=== PATIENT | female | born 1965 | race Caucasian/White ===

== ENCOUNTER → 2017-05-20 | Outpatient (CLI) | payer OTHER ==
[~2017-05-20] MED LIST: ALBUAER2 INH; LEVO100T84 PO
--- NOTE | 2017-05-20 14:09 | DIAGNOSTIC IMAGING REPORT ---
R SHOULDER MIN 2 VIEWS ROUTINE CLINICAL HISTORY: M25.511,S49.91XA RIGHT SHOULDER PAIN STATUS POST TRAUMA COMPARISON: None. DISCUSSION: There is acute fracture of the acromion. No additional fractures are visualized. There is no dislocation. IMPRESSION: Acute fracture of the acromion. Electronically signed by: Uriel Granger M.D. 05/20/2017 2:08 PM Dictated Date/Time: 05/20/2017 2:07 PM
--- NOTE | 2017-05-20 14:11 | DIAGNOSTIC IMAGING REPORT ---
RIGHT CLAVICLE 3 VIEWS CLINICAL HISTORY: Right arm injury. FINDINGS: 3 views of the right clavicle are correlated with radiographs of the right shoulder performed concurrently on 05/20/2017. The skeletal structures are well mineralized. There is a minimally distracted fracture of the acromion process of the scapula. The right clavicle appears intact. The acromioclavicular and sternoclavicular joints are preserved. The glenohumeral articulation is maintained. Mild soft tissue swelling is suggested overlying the acromion. The visualized right upper lobe lung parenchyma appears clear. IMPRESSION: 1. There is an acute and minimally distracted fracture of the right acromion process of the scapula. 2. No right clavicular fracture is seen. Electronically signed by: Zack Aquino M.D. 05/20/2017 2:09 PM Dictated Date/Time: 05/20/2017 2:08 PM
== END | disposition home or self-care (01) ==
LOC: C.RAD 13:24
PROVIDERS: ATTEND Physician Assistant Surgical
DX: M89.8X1 Other specified disorders of bone, shoulder (principal); M25.511 Pain in right shoulder; S49.91XA Unspecified injury of right shoulder and upper arm, initial encounter; X58.XXXA Exposure to other specified factors, initial encounter

== ENCOUNTER → 2017-12-21 | Outpatient (CLI) | payer OTHER ==
--- NOTE | 2017-12-21 14:25 | MAMMOGRAPHY REPORT ---
BILATERAL DIGITAL SCREENING MAMMOGRAM TOMOSYNTHESIS WITH CAD: 12/21/2017 CLINICAL HISTORY: Routine screening. Patient has no complaints. TECHNIQUE: Breast tomosynthesis in addition to standard 2D mammography was performed. Current study was also evaluated with a Computer Aided Detection (CAD) system. COMPARISON: Comparison is made to exams dated: 05/12/2007 and 05/12/2007. BREAST COMPOSITION: There are scattered areas of fibroglandular density in both breasts. FINDINGS: There are possible grouped linear calcifications in the 2:00 to 3:00 right breast, for whi ch additional spot magnification views are recommended. A focal asymmetry in the 12:00 posterior left breast effaces on the tomosynthesis images most likely representing normal overlapping fibroglandular tissue. No other suspicious mass, architectural distor tion or cluster of microcalcifications is seen. IMPRESSION: ACR BI-RADS CATEGORY 0: INCOMPLETE EVALUATION: NEED ADDITIONAL IMAGING EVALUATION The possible grouped linear calcifications in the 2:00 to 3:00 right breast need additional evaluatio n. The patient will be called to schedule an appointment. Approximately 10% of breast cancers are not detected with mammography. A negative mammographic report should not delay biopsy if a clinically suggestive mass is present. Stephanie Mac M.D. ay/:12/21/2017 09:07:55 Fluoroscope Operator: Poppy CALDWELL)(M), [facility] letter sent: Addl Imaging 0 BI-RADS Code: ACR BI-RADS Category 0: Incomplete Evaluation: Need Additional Imaging Evaluation
== END | disposition home or self-care (01) ==
LOC: C.MAMM 08:41
PROVIDERS: ATTEND Family Medicine
DX: R92.2 Inconclusive mammogram (principal)

== ENCOUNTER → 2017-12-29 | Outpatient (CLI) | payer OTHER ==
--- NOTE | 2017-12-29 15:47 | MAMMOGRAPHY REPORT ---
UNILATERAL RIGHT DIGITAL DIAGNOSTIC MAMMOGRAM: 12/29/2017 CLINICAL HISTORY: Callback from screening mammogram for right breast calcifications. TECHNIQUE: Spot magnification right cc and ML views were obtained. COMPARISON: Comparison is made to exams dated: 12/21/2017 mammogram - [facility] an d 05/12/2007. BREAST COMPOSITION: There are scattered areas of fibroglandular density in the right breast. FINDINGS: Spot magnification views of the right breast demonstrate grouped faint amorphous calcificat ions within the right upper inner quadrant which measure approximately 10 mm in extent on the ML view . On the ML view, the calcifications are in a linear distribution. The calcifications were not david rly present on the prior available 2006 exam. The calcifications are indeterminant given that they a re new and given the linear possibly ductal distribution, stereotactic biopsy is recommended for furt her evaluation. IMPRESSION: ACR BI-RADS CATEGORY 4: SUSPICIOUS Grouped calcifications in a linear distribution in the right upper inner quadrant are indeterminate a nd stereotactic biopsy is recommended for further evaluation. A phone call was made to the physician's office to confirm faxed results were received. The patient has been verbally notified of the results. She [facility] Approximately 10% of breast cancers are not detected with mammography. A negative mammographic report should not delay biopsy if a clinically suggestive mass is present. Donna Lopez M.D. ah/:12/29/2017 08:48:30 Field Sales Executive: Antoinette CALDWELL)(Cesar), [facility] letter sent: Abnormal 4/5 BI-RADS Code: ACR BI-RADS Category 4: Suspicious
== END | disposition home or self-care (01) ==
LOC: C.MAMM 08:27
PROVIDERS: ATTEND Family Medicine
DX: R92.1 Mammographic calcification found on diagnostic imaging of breast (principal)

== ENCOUNTER → 2018-01-05 | Outpatient (CLI) | payer OTHER ==
--- NOTE | 2018-01-05 08:43 | Discharge Instructions ---
Discharge Instructions Procedure Procedure Date: January 05, 2018. Reason for visit: Right Calcifications. Discharge Discharge Date: January 05, 2018. Discharge Diagnosis: status post breast biopsy Instructions Activity Recommendations: Additional Limitations (see below) Return to School/Work: no limitations Recommended Home Diet: No Limitations Provider Instructions: ACTIVITY RECOMMENDATIONS: * No lifting, pushing, pulling or exercising the affected side for three days. RETURN TO SCHOOL/WORK: * You may return to work/school after the procedure, but do not perform any strenuous activities for 24 to 48 hours. MEDICATIONS: * Tylenol (two 325 mg) every four to six hours if needed for mild pain (if not allergic to Tylenol). DIET: * Resume previous diet. SPECIAL CARE INSTRUCTIONS: * Keep biopsy site dry for 24 hours. May shower after 24 hours, but do not soak (bathe) incision. * May remove Tegaderm (plastic patch) tomorrow AFTER showering. * Leave the steri-strips on for one week. Allow the steri-strips to fall off by themselves. If not off after one week, you may remove them. You may place a Bandaid crosswise over the strips, if desired. * Apply ice 10 minutes on and 10 minutes off as needed. * Wear a bra at bedtime to sleep more comfortably for 2-3 days. * Your referring physician should have the results after approximately 5 to 7 business days. * Call for unusual bleeding, fever, drainage, etc or if you have any questions call during normal business hours or after hours call Dr Lopez, [phone]. FOLLOW UP VISIT: Follow-up with Referring Physician as scheduled. Allergies Coded Allergies: No Known Allergies (Verified Allergy, Unknown, 03/09/07) Todd Sethi Recommendations: Call your doctor if: * Temperature above 101 degrees * Pain not relieved by pain medicine ordered * There is increased drainage or redness from any incision * You have any unanswered questions or concerns. Your Doctors Instructions noted above were prepared by provider Donna Lopez. Patient Signature Section: Patient Instructions Signature Page Poppy Byrne Patient (or Guardian) Signature/Date: I have read and understand the instructions given to me by my caregivers. Caregiver/RN/Doctor Signature/Date: The above-named patient and/or guardian has received patient instructions on this date. + Original Patient Signature Page (only) stays with chart. Please make copy for patient.
--- NOTE | 2018-01-05 15:04 | MAMMOGRAPHY REPORT ---
STEREOTACTIC GUIDED BIOPSY RIGHT BREAST: 01/05/2018 CLINICAL HISTORY: Indeterminate calcifications in the right upper inner quadrant. PATIENT CONSENT: The procedure, risks, benefits, and alternatives of stereotactic biopsy with clip pl acement were discussed with the patient, and verbal and written consent was obtained. The increased risk of bleeding or bruising was discussed with the patient given the close proximity of the calcific ations to vessels. A timeout was performed immediately prior to the procedure. PROCEDURE DESCRIPTION: With stereotactic guidance, aseptic technique, and lidocaine as a local anesth etic (1% lidocaine to anesthetize the skin and 1% lidocaine with epinephrine to anesthetize the deepe r tissues), the calcifications of concern in the right upper inner quadrant were sampled multiple shereen es with a 9-gauge vacuum-assisted biopsy needle ([employer]). The path of approach was craniocaudal . The specimen radiograph demonstrates calcifications to be present in the samples. A metallic steff er clip was placed at the biopsy site. This was confirmed on postprocedure mammograms. Direct press ure was applied at the biopsy site and hemostasis was readily achieved. The patient had some bleedin g during the procedure; hemostasis was eventually achieved after approximately 10-15 minutes of manua l compression. She was given wound care instructions. COMPARISON: Comparison is made to exams dated: 12/29/2017 mammogram, 12/21/2017 mammogram - [facility], 05/12/2007, and 05/12/2007. IMPRESSION: STEREOTACTIC GUIDED BIOPSY Stereotactic guided biopsy of indeterminate calcifications in the right upper inner quadrant, with cl ip placement. The patient will receive pathology results from her referring provider. Donna Lopez M.D. ah/:01/05/2018 08:58:04 Attending Technologist: Juan Antonio Matthew RT(R)(M), [facility] Architectural Sales Consultant: Poppy Good RT(R)(M), [facility]
--- NOTE | 2018-01-05 15:08 | MAMMOGRAPHY REPORT ---
UNILATERAL RIGHT DIGITAL DIAGNOSTIC MAMMOGRAM: 01/05/2018 CLINICAL HISTORY: Status post right breast stereotactic biopsy. TECHNIQUE: Postprocedural right CC and ML views were obtained. COMPARISON: Comparison is made to exams dated: 12/29/2017 mammogram and 12/21/2017 mammogram - [facility]. BREAST COMPOSITION: There are scattered areas of fibroglandular density in the right breast. FINDINGS: A new biopsy marker clip is seen at the site of the biopsied calcifications in the right up per inner quadrant. No significant postbiopsy hematoma is seen. IMPRESSION: POST PROCEDURE IMAGING FOR MARKER PLACEMENT New biopsy marker clip status post right breast biopsy. Pathology results are pending. Approximately 10% of breast cancers are not detected with mammography. A negative mammographic report should not delay biopsy if a clinically suggestive mass is present. Donna Lopez M.D. ah/:01/05/2018 09:06:17 Attending Technologist: Juan Antonio Matthew RT(R)(M), [facility] Student Support Services Director: Poppy Good RT(R)(M), [facility] BI-RADS Code: Post Procedure Imaging For Marker Placement
== END | disposition home or self-care (01) ==
LOC: C.MAMM 07:52
PROVIDERS: ATTEND Family Medicine
DX: R92.0 Mammographic microcalcification found on diagnostic imaging of breast (principal); D05.11 Intraductal carcinoma in situ of right breast

== ENCOUNTER 2018-03-28 07:52 | Observation (INO) | payer OTHER ==
[2018-03-08 08:48] VITALS: BMI 17.0
[2018-03-28] VITALS (9 sets, daily range): BP systolic 109–146; BP diastolic 68–87; PULSE 76–98; TEMP 36.6–37; O2SAT 94–98; Ht 154.9 cm; Wt 42.0 kg
[~2018-03-28] VITALS: Ht 154.9 cm; Wt 42.0 kg
[~2018-03-28 07:52] MED LIST changes: -ALBUAER2 INH; +CEFAZOLIN 2000MG IV PUSH 15 ML IV SCH; +LACTATED RINGER'S 1000ML 1,000 ML IV SCH; +LEVO100T7 PO; -LEVO100T84 PO; +PARO1TAB27 PO; +POTA10CA28 PO
--- NOTE | 2018-03-28 09:40 | DIAGNOSTIC IMAGING REPORT ---
LYMPH SENTINEL NODE ID CLINICAL HISTORY: RIGHT BREAST CA breast carcinoma TECHNIQUE: Sequential periareolar administration of 0.5 mCi technetium 99m lymphoseek.. COMPARISON STUDY: None FINDINGS: Successful right breast periareolar injection IMPRESSION: Successful right breast periareolar injections for subsequent sentinel node localization The above report was generated using voice recognition software. It may contain grammatical, syntax or spelling errors. Electronically signed by: Broderick Swanson M.D. 03/28/2018 9:38 AM Dictated Date/Time: 03/28/2018 9:37 AM
--- NOTE | 2018-03-28 09:56 | History and Physical ---
History & Physical Date Mar 28, 2018. Chief Complaint Rt breast cancer History of Present Illness The patient is a 52 year old female with a history of Rt breast cancer Additional History Other: COPD Allergies Coded Allergies: No Known Allergies (Verified , 03/28/18) Home Medications Scheduled Levothyroxine Sodium (Levothyroxine Sodium), 1 TAB PO QAM Paroxetine (Paxil), 10 MG PO QAM Potassium Chloride (Micro-K Ext Rel), 10 MEQ PO QAM Physical Examination Skin: warm/dry Head: atraumatic Neck: supple Respiratory/Chest: no respiratory distress Cardiovascular: regular rate, rhythm Abdomen / GI: non tender Neurologic/Psych: alert Diagnosis Rt breast cancer Plan of Treatment for needle loc Rt lumpectomy with sentinel lymph node bx
[2018-03-28] MEDS ORDERED: MIDAZOLAM HCL 1 MG/ML 2ML VIAL ONE (10:47)
[2018-03-28] MEDS ORDERED: LIDOCAINE HCL 2% 2 ML VIAL (20MG/ML) ONE (10:47)
[2018-03-28] MEDS ORDERED: PROPOFOL IV EMULSION 10 MG/ML 20 ML VIAL ONE (10:47)
[2018-03-28] MEDS ORDERED: DEXAMETHASONE SOD INJ 4 MG/ML VIAL ONE (10:47)
[2018-03-28] MEDS ORDERED: ONDANSETRON INJ 2 MG/ML 2 ML VIAL ONE (10:47)
[2018-03-28] MEDS ORDERED: FENTANYL CITRATE INJ 50 MCG/1 ML 2 ML VIAL ONE ×2 (10:48→12:51)
[2018-03-28] MEDS ORDERED: BUPIVACAINE 0.5 % 5 MG/1 ML PF 10ML VIAL ONE (11:26)
[2018-03-28] MEDS ORDERED: ISOSULFAN BLUE 10 MG/ML VIAL 5 ML ONE (11:27)
[2018-03-28] MEDS ORDERED: METHYLENE BLUE 0.5% 10 ML VIAL ONE (12:11)
[2018-03-28] MEDS ORDERED: EpHEDrine SULFATE 50MG/5ML SYR ONE (12:31)
--- NOTE | 2018-03-28 12:33 | [facility] Operative Report ---
Operative Report Operative Date Mar 28, 2018. Pre-Operative Diagnosis Right Breast Cancer Post-Operative Diagnosis Right Breast Cancer Procedure(s) Performed Rt breast lumpectomy w/ sentinel lymph node bx Surgeon Dr Laura Meyers Net Programmer Analyst Surgeon(s) Carmen Leiva PA-C Estimated Blood Loss 20cc Findings 2 SLNs - negative Specimens Frozen Section: Right Sentinal Lymph Node; sent at 12:03 Fresh Specimen: A. Right Breast Mass; skin anterior; long silk- lateral; short silk - medial; plain - superior B. Right Axillary Lymph Node C. Additional Right Breast tissue: long-lateral; short-medial; methylene blue-new margin D. Additional Inferior Breast tissue: short silk-medial; long silk-lateral; methylene blue-new margin Drains None Anesthesia Type General Complication(s) none Disposition Recovery Room / PACU I attest to the content of the Intraoperative Record and any orders documented therein. Any exceptions are noted below.
[2018-03-28] MEDS ORDERED: HYDROCODONE/ACETAMIN 5/325MG TAB PO PRN ×2 (12:45)
[2018-03-28] MEDS ORDERED: MoRPHine SULFATE 2 MG/ML CARP IV PRN (12:45)
[2018-03-28] MEDS ORDERED: PROMETHAZINE HCL INJ 25 MG in SODIUM CHLORIDE 0.9% 50ML 50 ML IV PRN (12:45)
[2018-03-28] MEDS ORDERED: MoRPHine SULFATE 4 MG/ML 1 ML CARP\\VIAL IV PRN (12:45)
[2018-03-28] MEDS ORDERED: ONDANSETRON INJ 2 MG/ML 2 ML VIAL IV PRN ×2 (12:45→13:00)
[2018-03-28] MEDS ORDERED: PROMETHAZINE HCL INJ 12.5 MG in SODIUM CHLORIDE 0.9% 50ML 50 ML IV PRN ×2 (13:00→13:30)
[2018-03-28] MEDS ORDERED: FLUMAZENIL 0.1 MG/1 ML 10 ML VIAL IV PRN (13:00)
[2018-03-28] MEDS ORDERED: FENTANYL CITRATE INJ 50 MCG/1 ML 2 ML VIAL IV PRN (13:00)
[2018-03-28] MEDS ORDERED: EpHEDrine SULFATE INJ 50 MG/ML AMP IV PRN (13:00)
[2018-03-28] MEDS ORDERED: LABETALOL HCL IV 5 MG/ML 20ML IV PRN (13:00)
[2018-03-28] MEDS ORDERED: ATROPINE SULFATE 0.1 MG/ML 5ML SYR IV PRN (13:00)
[2018-03-28] MEDS ORDERED: NALOXONE HCL 0.4 MG/1 ML VIAL/CARP IV PRN (13:00)
--- NOTE | 2018-03-28 13:00 | OPERATIVE REPORT ---
DATE OF OPERATION: 03/28/2018 NAME OF OPERATION: Right lumpectomy with sentinel lymph node biopsy. PREOPERATIVE DIAGNOSIS: Right breast cancer. POSTOPERATIVE DIAGNOSIS: Right breast cancer. STAFF SURGEON: Jose Meyers MD HAIR CLIPPER POWER: Derrick Leiva PA-C. ANESTHESIA: General. DESCRIPTION OF PROCEDURE: The patient was brought in the operating room and placed on the operating room table in supine position. Her right axilla and breast were prepped and draped in usual fashion. She had a needle in the upper part of the breast from medial to lateral. She had been injected for sentinel lymph node biopsy. Incision was made in the axilla using 0.5% plain Marcaine to anesthetize the skin and carried dissection very deeply down into the axilla, identifying the lymph nodes. They were sent for frozen section. There were 2 lymph nodes. They were negative. An additional lymph node was then sent for permanent section. This was not a sentinel node. At this point, during the frozen section, we did perform lumpectomy making an elliptical incision around the needle carrying dissection down to the chest wall, removing the tissue. The skin was anterior, long silk lateral, short silk medial, plain suture superior. It was placed into the Faxitron. The clip was within the center of the tissue. I took additional superior and inferior tissue to the chest wall. These were marked long silk suture lateral, short silk suture medial and methylene blue new margin. Clips were placed in the breast at the level of the tumor. Deep tissue reapproximated using 2-0 plain catgut suture and then the subcutaneous tissue reapproximated using 3-0 Vicryl suture, then the skin reapproximated using running subcuticular 4-0 Monocryl with Steri-Strips. The axilla was closed with 2-0 plain deep and then 4-0 Prolene for the skin. The patient was transferred to the recovery room in stable condition. My janitorial assistant helped with prepping, draping and excision of the lymph node and breast tissue and then closure of the wounds. I attest to the content of the Intraoperative Record and any orders documented therein. Any exception s are noted below.
--- NOTE | 2018-03-28 14:02 | Anesthesiology Progress Note ---
Anesthesia Post Op Note Date & Time Mar 28, 2018 at 14:02 Vital Signs Pain Intensity: 2 Vital Signs Past 12 Hours Date Time Temp Pulse Resp B/P (MAP) Pulse Ox O2 Delivery O2 Flow Rate FiO2 03/28/18 13:51 137/88 03/28/18 13:47 84 14 03/28/18 13:47 85 14 95 03/28/18 13:46 143/87 03/28/18 13:42 88 18 95 03/28/18 13:42 88 18 03/28/18 13:41 137/88 03/28/18 13:37 86 14 95 03/28/18 13:37 87 14 03/28/18 13:36 144/87 03/28/18 13:32 84 17 03/28/18 13:32 84 17 95 03/28/18 13:31 144/89 03/28/18 13:27 85 17 03/28/18 13:27 85 17 95 03/28/18 13:26 147/86 03/28/18 13:22 85 18 03/28/18 13:22 85 18 95 03/28/18 13:21 147/87 03/28/18 13:18 83 13 95 03/28/18 13:18 82 13 03/28/18 13:18 36.7 83 20 147/87 (109) 95 Oxymask 10 03/28/18 13:16 149/88 03/28/18 13:13 80 12 97 03/28/18 13:13 80 12 03/28/18 13:12 80 13 97 03/28/18 13:12 80 13 03/28/18 13:11 152/88 03/28/18 13:07 77 14 99 03/28/18 13:07 77 14 03/28/18 13:06 156/95 03/28/18 13:02 77 13 99 03/28/18 13:02 77 13 03/28/18 13:01 153/96 03/28/18 13:00 88 21 99 03/28/18 13:00 85 21 03/28/18 12:56 157/91 03/28/18 12:55 76 13 03/28/18 12:55 76 13 100 03/28/18 12:51 162/99 03/28/18 12:50 77 18 100 03/28/18 12:50 79 18 03/28/18 12:46 154/99 03/28/18 12:45 84 11 03/28/18 12:45 36.3 82 12 154/99 (122) 99 Oxymask 10 03/28/18 12:45 100 11 100 03/28/18 08:57 36.8 76 16 139/83 (101) 97 Room Air Notes Mental Status: alert / awake / arousable, participated in evaluation Pt Amnestic to Procedure: Yes Nausea / Vomiting: adequately controlled Pain: adequately controlled Airway Patency, RR, SpO2: stable & adequate BP & HR: stable & adequate Hydration State: stable & adequate Anesthetic Complications: no major complications apparent
[2018-03-28] MEDS ORDERED: LACTATED RINGER'S 1000ML 1,000 ML IV SCH (14:30)
[2018-03-28] MEDS ORDERED: HYDR-5688 PO (14:48)
--- NOTE | 2018-03-28 14:51 | Discharge Instructions ---
Discharge Instructions Date of Service Mar 28, 2018. Admission Reason for Admission: Right Breast Cancer W/Hosp Loc & Nm Inj Discharge Discharge Diagnosis / Problem: breast cancer Discharge Goals Goal(s): Decrease discomfort, Improve function, Improve disease control Activity Recommendations Activity Limitations: as noted below Lifting Limitations: no more than 25 pounds Exercise/Sports Limitations: until after follow-up appointment May Resume Sexual Activity: when tolerated Shower/Bathe: tomorrow Driving or Machine Use: resume 3 days after discharge . Instructions / Follow-Up Instructions / Follow-Up SPECIAL CARE INSTRUCTIONS: * Cover incisions and change daily for comfort/drainage. * Leave steri strips in place * May use ibuprofen for pain as tolerated. * Expect some swelling and bruising. Call your doctor if: * Temperature above 101 degrees * Pain not relieved by pain medicine ordered * There is increased drainage or redness from any incision * You have any unanswered questions or concerns [phone]. FOLLOW UP VISIT: If not already scheduled, please call the office for a follow-up visit. for next week- some suture removal OFFICE PHONE NUMBER: Dr. Meyers Office Current Hospital Diet Patient's current hospital diet: Regular Diet Discharge Diet Recommended Diet: Regular Diet Procedures Procedures Performed: Rt breast lumpectomy w/ sentinel lymph node bx Pending Studies Studies pending at discharge: no Medical Emergencies . Who to Call and When: Medical Emergencies: If at any time you feel your situation is an emergency, please call 911 immediately. . Non-Emergent Contact Non-Emergency issues call your: Primary Care Provider, Surgeon . "Provider Documentation" section prepared by Jose Meyers. .
[2018-03-28] MEDS ORDERED: IV FLUIDS COMPLETED PRN (15:30)
--- NOTE | 2018-03-28 15:40 | MAMMOGRAPHY REPORT ---
NEEDLE LOCALIZATION RIGHT BREAST: 03/28/2018 CLINICAL HISTORY: 52-year-old woman presents for preoperative needle and wire localization of the rig ht breast. She has recent biopsy-proven carcinoma in the upper inner right breast involving an area o f calcifications, denoted by a dumbbell-shaped biopsy marker clip. Another recently biopsied area in the 6:00 right breast yielded benign pathology results, denoted by a ribbon-shaped biopsy marker clip . COMPARISON: Comparison is made to exams dated: 02/09/2018 ultrasound biopsy, 02/09/2018 mammogram, 12/30 breast MRI, 01/05/2018 mammogram, 12/21/2017 mammogram - [facility], and 007. PATIENT CONSENT: The risks of the procedure were explained to the patient and verbal informed consent was obtained. The patient denied eating or drinking anything this morning that would preclude anest hesia. She also denied allergy to lidocaine. A timeout was performed and the right breast was confi rmed as the site for preoperative localization. PROCEDURE DESCRIPTION: Prior imaging of the right breast including: Screening mammograms dated 018, diagnostic mammograms dated , right breast stereotactic biopsy performed 01/05/2018, ultraso und-guided core biopsy dated 02/09/2018 and postprocedure mammograms dated 02/09/2018 were reviewed. T he dumbbell-shaped biopsy marker clip in the upper inner right breast is the intended target for preo perative localization. With the patient in the seated position, the right breast was placed in mediallateral positioning. A 2D view was obtained which demonstrates the dumbbell-shaped biopsy marker clip within the targeting window. Using an alpha numeric grid, the biopsy marker clip was localized. The skin of the right b reast was cleansed with alcohol. 1% buffered lidocaine without epinephrine was administered as local anesthesia. A 5 cm Parker II needle wire combination was inserted into the breast targeting the du mbbell-shaped biopsy marker clip. A repeat mediallateral view was obtained which demonstrates good position of the needle. The breast was then repositioned into the CC projection and fine adjustments were made with the wire ultimately being locked in place at the level of the biopsy clip. The entire procedure including approach and needle length were discussed with the operating surgeon prior to mcmahon rgery. The patient tolerated the procedure well and there was no immediate complication. She was tr ansferred and escorted to the operating room in satisfactory condition. A specimen radiograph was obtained which demonstrates the localizing needle and wire combination and the biopsy marker clip within the tissue specimen, compatible with successful preoperative localizati on and subsequent surgical excision. Final pathology is pending. IMPRESSION: NEEDLE LOCALIZATION Status post preoperative needle wire localization for biopsy-proven carcinoma in the upper inner rig t breast. The imaged specimen includes the intended abnormalities. The patient will receive notification of the pathology results from her referring physician. Stephanie Mac M.D. ay/:03/28/2018 12:32:09 [place] [employer] Member: RT Jerod(Nadia)(M), [facility]
--- NOTE | 2018-03-28 15:40 | MAMMOGRAPHY REPORT ---
SPECIMEN: 03/28/2018 CLINICAL HISTORY: Right breast lumpectomy specimen. Please refer to the report from right breast mammogram guided needle localization performed at the [facility] time for full detail. IMPRESSION: SPECIMEN Please refer to the report from right breast mammogram guided needle localization performed at the [facility] time for full detail. Stephanie Mac M.D. ay/:03/28/2018 14:30:07 Product Accountant: RT James(Nadia)(M), [facility]
[2018-03-28] MEDS ORDERED: PNEUMOCOCCAL ADMINISTRATION CHARGE ONE (16:00)
[2018-03-28] MEDS ORDERED: PNEUMOCOCCAL POLYSACCHARIDES 25 MCG/0.5 ML VIAL/SYR IM. ONE (16:00)
[2018-03-28] MEDS: CEFAZOLIN IV 1,000 MG in SYRINGE 0 ML IV SCH (19:31)
[2018-03-29 03:50] VITALS: BP 126/71; PULSE 74; TEMP 36.6; O2SAT 98
[2018-03-29] MEDS: CEFAZOLIN IV 1,000 MG in SYRINGE 0 ML IV SCH ×2 (03:58→11:29)
--- NOTE | 2018-03-29 07:14 | DISCHARGE SUMMARY ---
PRINCIPAL DIAGNOSIS: Right breast cancer. PROCEDURES: The patient underwent right partial mastectomy with sentinel lymph node biopsy. HISTORY OF PRESENT ILLNESS: The patient is a 52-year-old female with a biopsy proven right breast cancer for definitive surgery. HOSPITAL COURSE: The patient was brought into the hospital on 03/28/2018 where she underwent initially a needle localization at the breast center of the right breast and then injection for sentinel lymph node biopsy and then taken to the operating room where she underwent right sentinel lymph node biopsy with right lumpectomy. There were 2 sentinel lymph nodes which were negative. The patient tolerated the procedure well. She has done well overnight and is felt stable for discharge home today to be followed in the surgical clinic within 1 week.
[2018-03-29 07:50] VITALS: BP 120/75; PULSE 74; TEMP 36.7; O2SAT 95
--- NOTE | 2018-03-29 10:39 | Anesthesiology Progress Note ---
Anesthesia Post Op Note Date & Time Mar 29, 2018 at 10:38 Vital Signs Vital Signs Past 12 Hours Date Time Temp Pulse Resp B/P (MAP) Pulse Ox O2 Delivery O2 Flow Rate FiO2 03/29/18 07:50 36.7 74 16 120/75 (90) 95 Room Air 03/29/18 03:50 36.6 74 14 126/71 (89) 98 Room Air 03/28/18 23:08 36.6 84 14 109/68 (82) 97 Room Air Notes Mental Status: alert / awake / arousable, participated in evaluation Pt Amnestic to Procedure: Yes Nausea / Vomiting: adequately controlled Pain: adequately controlled Airway Patency, RR, SpO2: stable & adequate BP & HR: stable & adequate Hydration State: stable & adequate Anesthetic Complications: no major complications apparent
[2018-03-29 11:04] VITALS: BP 120/75; PULSE 74; TEMP 36.7; O2SAT 95
== END 2018-03-29 12:01 | disposition home or self-care (01) ==
LOC: C.ACU 07:52 → C.MSN 12:46 → ENRESERV 13:16
PROVIDERS: ADMIT Surgery; ATTEND Surgery
DX: C50.911 Malignant neoplasm of unspecified site of right female breast (principal); J44.9 Chronic obstructive pulmonary disease, unspecified; E03.9 Hypothyroidism, unspecified; F17.200 Nicotine dependence, unspecified, uncomplicated